=== PATIENT | male | born 1955 | race Caucasian/White ===

== ENCOUNTER 2021-01-15 10:00 | Outpatient (RCR) | payer OTHER, SELFPAY | END 2021-06-17 10:54 | disposition home or self-care (01) | LOC: HO.PTCHIC 10:00 | PROVIDERS: PCP Internal Medicine; Visit Provider Internal Medicine | DX: M54.9 Dorsalgia, unspecified (principal) | CPT/HCPCS: 97110; 97140; 97163 ==

== ENCOUNTER 2021-02-25 13:23 | Outpatient (REF) | payer MEDICARE, SELFPAY ==
--- NOTE | ~2021-02-25 | XR_ITS ---
EXAMINATION: XR FOOT, RIGHT CLINICAL INFORMATION: Right foot pain after trauma. COMPARISON: 12/30/2016 TECHNIQUE: AP, lateral, and oblique views of the right foot. FINDINGS: There is a transverse fracture of the right 5th toe proximal phalangeal shaft with buckling of the dorsal cortex. Bones are osteopenic. No additional fractures are identified. There is mild osteoarthritis in the 1st MTP joint and a few interphalangeal joints. Joints otherwise appear relatively well-preserved. Soft tissues are swollen with subcutaneous edema. Calcific atherosclerosis is noted. Osteoarthritis is evident in the ankle. XR/XR foot RT min 3V IMPRESSION: Non-displaced fracture of the 5th toe proximal phalangeal shaft.
== END 2021-02-25 13:24 | disposition home or self-care (01) ==
LOC: HO.XRAY 13:23
PROVIDERS: PCP Internal Medicine; Visit Provider Internal Medicine
DX: M79.671 Pain in right foot (principal)
CPT/HCPCS: 73630

== ENCOUNTER → 2021-04-21 08:42 | Outpatient (BNVA) | payer MEDICARE, SELFPAY | PROVIDERS: PCP Internal Medicine; Visit Provider Physician Assistant | DX: Z09 Encounter for follow-up examination after completed treatment for conditions other than malignant neoplasm (principal); S92.911D Unspecified fracture of right toe(s), subsequent encounter for fracture with routine healing | CPT/HCPCS: 99202 ==

== ENCOUNTER 2021-07-17 14:00 | Outpatient (RCR) | payer OTHER, SELFPAY | END 2021-07-17 16:54 | disposition home or self-care (01) | LOC: HO.PTCHIC 14:00 | PROVIDERS: Visit Provider Internal Medicine | DX: M51.36 Other intervertebral disc degeneration, lumbar region (principal) | CPT/HCPCS: 97110; 97140; 97162 ==

== ENCOUNTER 2022-10-13 09:32 | Outpatient (REF) | payer OTHER, SELFPAY ==
[2022-10-13 14:22] LABS: Basophils Absolute Auto 0.1 X10*3/uL (0.0-0.2); Basophils Percent Auto 0.6 % (0-2); Eosinophils Absolute Auto 0.2 X10*3/uL (0.0-0.4); Eosinophils Percent Auto 2.3 % (0-4); Hematocrit 42.8 % (42.0-52.0); Hemoglobin 13.9 g/dl (14.0-18.0); Imm Gran Abs Auto 0.08 X10*3/uL (0.00-0.03); Imm Gran Pct Auto 0.8 % (0.0-0.4); Lymphocytes Absolute Auto 1.5 X10*3/uL (1.2-4.9); Lymphocytes Percent Auto 14.3 % (20-40); MANUAL DIFF FLAG NO; Mean Corpuscular HGB Conc 32.5 g/dl (31.0-36.0); Mean Corpuscular Hemoglobin 28.4 pg (27.0-33.0); Mean Corpuscular Volume 87.5 fL (80.0-98.0); Mean Platelet Volume 10.7 fL (9.4-12.4); Monocytes Absolute Auto 0.8 X10*3/uL (0.1-1.2); Monocytes Percent Auto 7.4 % (2-11); Neutrophils Absolute Auto 7.8 x10*3/uL (2.0-8.3); Neutrophils Percent Auto 74.6 % (45-73); Platelet Count 223 X10*3/uL (160-400); Red Blood Count 4.89 X10*6/uL (4.60-5.80); Red Cell Distribution Width 13.4 % (11.0-16.0); White Blood Count 10.4 X10*3/uL (4.8-10.8)
[2022-10-13 15:06] LABS: Alanine Aminotransferase 21 U/L (0-40); Albumin Level 4.3 g/dL (3.5-5.0); Alkaline Phosphatase 83 U/L (39-117); Anion Gap 18 (12-20); Aspartate Amino Transferase 17 U/L (5-37); Bilirubin Total 0.6 mg/dL (0.0-1.0); Blood Urea Nitrogen 21 mg/dL (9-16); Calcium 10.3 mg/dL (8.4-10.2); Carbon Dioxide 26 mmol/L (22-29); Chloride 102 mmol/L (96-108); Estimated Glomerular Filt Rate > 60; Glucose Fasting 101 mg/dL (60-99); Sodium 141 mmol/L (135-145); Total Protein 7.1 g/dL (6.5-8.0)
== END 2022-10-13 09:33 | disposition home or self-care (01) ==
LOC: HO.CHCLDS 09:32
PROVIDERS: Visit Provider Internal Medicine
DX: I10 Essential (primary) hypertension (principal); E78.2 Mixed hyperlipidemia
CPT/HCPCS: 36415; 80053; 85025

== ENCOUNTER 2023-09-17 12:56 | Outpatient (REF) | payer OTHER, SELFPAY ==
[2023-09-17 15:10] LABS: Alanine Aminotransferase 14 U/L (0-40); Albumin Level 4.1 g/dL (3.5-5.0); Alkaline Phosphatase 65 U/L (39-117); Anion Gap 12 (12-20); Aspartate Amino Transferase 13 U/L (5-37); Bilirubin Total 0.5 mg/dL (0.0-1.0); Blood Urea Nitrogen 18 mg/dL (9-16); Calcium 9.4 mg/dL (8.4-10.2); Carbon Dioxide 28 mmol/L (22-29); Chloride 106 mmol/L (96-108); Cholesterol 138 mg/dL (<200); Estimated Glomerular Filt Rate > 60; Glucose Random 93 mg/dL (60-115); HDL Cholesterol 32 mg/dL (>40); LDL Cholesterol Calculated 73 mg/dL (<100); Potassium 4.1 mmol/L (3.3-5.1); Sodium 142 mmol/L (135-145); Total Protein 6.7 g/dL (6.5-8.0); Triglycerides 166 mg/dL (<150)
[2023-09-17 15:23] LABS: PSA,Total (Free>4and<10) 0.42 ng/mL (0.00-4.00)
[2023-09-17 15:31] LABS: TSH reflex Free T4 0.93 uIU/mL (0.32-4.0)
== END 2023-09-17 12:57 | disposition home or self-care (01) ==
LOC: CF 12:56
PROVIDERS: Visit Provider Internal Medicine
DX: Z12.5 Encounter for screening for malignant neoplasm of prostate (principal); M54.9 Dorsalgia, unspecified; E11.9 Type 2 diabetes mellitus without complications; E78.2 Mixed hyperlipidemia
CPT/HCPCS: 36415; 80053; 80061; 84153; 84443

== ENCOUNTER 2025-01-09 08:33 | Outpatient (REF) | payer OTHER, SELFPAY ==
--- OUTSIDE RECORDS SUMMARY | 2025-01-09 09:10 | XMS_ITS | Encounter Summary ---
Author Organization [employer] Address [address] [place] [address] 7 [place] [address] Care Team Providers Care Marble Setter Name Role Phone Heather Garcia MD Primary Care Provider [phone] Encounter Details Date Type Department Care Team ([facility] st Contact Info) Description 07/29/2023 Orders Only [facility] MED & PEDS [address] [place], [place] [phone] Heather Garcia MD [address] [place], [place] [phone] Back pain, unspecified back location, unspecified back pain laterality, unspecified chronicity (Primary Dx) Social History Tobacco Use Types Packs/Day Years Used Date Smoking Tobacco: Former Cigarettes Q uit: 1999 Smokeless Tobacco: Never Alcohol Use Standard Drinks/Week Comments Not Currently 0 (1 standard drink = 0.6 oz pur e alcohol) occasional Alcohol Answer Date Recorded Frequency of Alcohol Consumption Not on file 03/04/2023 Average Number of Drinks Not on file 023 Frequency of Binge Drinking Not on file 02/05 Score 0 03/04/2023 Depression Answer Date Recorded Patient Health Questionnaire-9 Score 0 03/04/2023 Patient Health Questionnaire-9 Score 0 03/04/2023 Last PHQ-9: Questionnaire Data Not on file 1 05/04/2022 Housing Stability Answer Date Recorded What is your housing situation today? I have juanita schafer 03/04/[address] you li ve. Do you have problems with any of the following? None of the above 03/04/2023 Food Insecurity Answer Date Recorded Within the past 12 months, y ou worried that your food would run out before you got money to buy more: Never True 03/04/2023 Within the past 12 months,th e food you bought just didn't last and you didn't have enough money to get more: Never True Transportation Answer Date Recorded In the past 12 months, has l ack of transportation kept you from medical appts, meetings, work or from getting things needed for daily living? No 03/04/2023 Utilities Answer Date Recorded In the past 12 months, has t he [employer], gas, oil or water [employer] threatened to shut off services in your home? No 03/04/2023 Depression Answer Date Recorded Patient Health Questionnaire-2 Score 0 03/04/2023 Sex and Gender Information Value Date Recorded Sex Assigned at Male 02/02/2022 10:20 AM EDT Legal Sex Male 10:20 AM EDT Gender Identity Male 02/02/2022 10:20 AM EDT Sexual Orientation Straight 02/02/2022 10 :20 AM EDT documented as of this encounter Plan of Treatment Upcoming Encounters Date Type Department Care Team (Late st Contact Info) Description 01/15/2025 1:00 PM EDT Office Visit [facility] MED & PEDS [address] [place] [address] Heather Garcia MD [address] [place] [address] 03/22/2025 1:30 PM EST Clinical Support [facility] [address] [place] [address] Love Alexandra RN [address] [place] [address] documented as of this encounter Procedures Procedure Name Priority Date/Time Associated Diagnosis Comments PSA, TOTAL WITH REFLEX TO PSA, FREE Routine 09/17/2023 12:57 PM EDT Back pain, unspecified back location, unspecified back pain laterality, unspecified chronicity documented in this encounter Results * PSA, Total With Reflex to PSA, Free (09/17/2023 12:57 PM EDT) PSA,Total (Free>4and<10) 0.42 0.00 - 4.00 ng/mL [facility] Comment:A Free PSA was not p erformed: The percentage of Free PSA can be used to enhance the differentiation of prostate cancer from benign prostatic disease in subjects whose PSA levels are between 4.0 and 10.0 ng/mL. For subjects whose PSA levels are below 4.0 or above 10.0 ng/mL, the risk of prostate cancer is determined on the basis of the PSA alone. Therefore the % Free PSA is recommended only for those subjects whose PSA levels are between 4.0 and 10.0 ng/mL.PSA methodology: Sexton Alinity i ChemiluminescentMicroparticle Immunoassay (CMIA) 09/17/2023 12:5 7 PM EDT 09/17/2023 2:39 PM EDT us Heather Garcia MD LAB BLOOD ORDERABLES Final Result [facility] [address] [place] [address] [phone] documented in this encounter Visit Diagnoses Diagnosis Back pain, unspecified back location, unspecified back pain laterality, unspecified chronicity- Primary documented in this encounter Additional Health Concerns Assessment Noted Time PHQ-9 Depression Total Score: 0 03/04/20 23 9:59 AM EST documented as of this encounter Care Teams Marble Setter Relationship Specialty Start Date End Date Heather Garcia MD [address] [place] [address] PCP - General Internal Medicine 03/23/13 documented as of this encounter
--- OUTSIDE RECORDS SUMMARY | 2025-01-09 09:10 | XMS_ITS | Encounter Summary ---
Author Organization [employer] Address [address] [place] [address] 7 [place] [address] Care Team Providers Care Dimensional Engineer Name Role Phone Heather Garcia MD Primary Care Provider [phone] Encounter Details Date Type Department Care Team ([facility] st Contact Info) Description 08/13/2023 Orders Only [facility] CHC MED & PEDS [address] [place], [place] [phone] Heather Garcia MD [address] [place], [place] [phone] Class 2 obesity (Primary Dx); Type 2 diabetes, diet controlled (CMS/HCC) Social History Tobacco Use Types Packs/Day Years [...] your housing situation today? I have juanita shcafer 03/04/[address] you li [...] the past 12 months, has t he electric, gas, oil or water company threatened to shut off services in your [...] Description 01/15/2025 1:00 PM EDT Office Visit [facility] MED & PEDS [address] [place] [address] Heather Garcia MD [address] [place] [address] 03/22/2025 1:30 PM EST Clinical Support [facility] P[facility] [address] [place] [address] Love Alexandra, PALAK [address] [place] [address] documented as of this encounter Visit Diagnoses Diagnosis Class 2 obesity- Primary Type 2 diabetes, diet controlled (HCC) documented in this encounter Additional Health Concerns Assessment Noted Time PHQ-9 Depression Total Score: 0 03/04/20 9:59 AM EST documented as of this encounter Care Teams Dimensional Engineer Relationship Specialty Start Date End Date Heather Garcia MD [address] [place] [address] PCP - General Internal Medicine 03/23/13 documented as of this encounter
--- OUTSIDE RECORDS SUMMARY | 2025-01-09 09:10 | XMS_ITS | Encounter Summary ---
Author Organization [employer] Address [address] [facility] 7 [place] [address] Care Team Providers Care Package Drier Name Role Phone Heather Garcia MD Primary Care Provider [phone] Reason for Visit * Reason Onset Date Comments Medication Question 08/31/2024 Encounter Details Date Type Department Care Team ([facility] st Contact Info) Description 08/31/2024 Telephone [facility] MEDICINE [address] [place], [place] [phone] Heather Garcia MD [address] [place] [address] Medication Question Social History Tobacco Use Types Packs/Day Years Used Date Smoking Tobacco: Former Cigarettes Q uit: 1999 Passive Smoke Exposure: Past Smokeless Tobacco: Never Alcohol Use Standard Drinks/Week [...] housing situation today? I have juanita schafer 08/03/[address] you li ve. Do you have problems with any of the following? Pests such as bugs, ants, or mice 08/03/2024 Food Insecurity Answer Date Recorded Within the past 12 months, y ou worried that your food would run out before you got money to buy more: Sometimes True 2024 Within the past 12 months,th e food you bought just didn't last and you didn't have enough money to get more: Sometimes True 08/03/2024 Transportation Answer Date Recorded In the past 12 months, has l ack of transportation kept you from medical appts, meetings, work or from getting things needed for daily living? No 03/04/2023 Utilities Answer Date Recorded In the past 12 months, has t he [employer], [employer], oil or water [employer] threatened to shut off services in your home? No 03/04/2023 Depression Answer Date Recorded Patient Health Questionnaire-2 Score 0 03/04/2023 Internet Access Answer Date Recorded Internet Access Q1 Yes 08/03/2024 Internet Access Q2 Not on file 08/03/2024 Sex and Gender Information Value Date Recorded Sex Assigned at Male 02/02/2022 10:20 AM EDT Legal Sex Male 10:20 AM EDT Gender Identity Male 02/02/2022 10:20 AM EDT Sexual Orientation Straight 02/02/2022 10 :20 AM EDT documented as of this encounter Miscellaneous Notes * Telephone Encounter - Micki Hidalgo RN - 08/31/2024 12:51 PM EDT Prescription resent to pharmacy allowing patient to berry picker machine operator Oxy 5 mg 08/31/24. Attempted to contactpatient via TC, no answer and no message left. * Telephone Encounter - Boubacar Hansen - 08/31/2024 12:32 PM EDT Tc from pt was informed pharmacy is unable to fill oxyCODONE (Roxicodone) 5 MG immediate release tablet because medication is due for tomorrow and they advised opt to call pcp. Pt has an appt today at 1:00 with dentist and states will not have transportation for tomorrow and is hoping pcp can override due date for pt to berry picker machine operator medication today. If any questions please contact pt at [phone]. documented in this encounter Plan of Treatment Upcoming Encounters Date Type Department Care Team (Late st Contact Info) Description 01/15/2025 1:00 PM EDT Office Visit [facility] MED & PEDS [address] [place] [address] Heather Garcia MD [address] [place] [address] 03/22/2025 1:30 PM EST Clinical Support [facility] MED & PEDS [address] [place] [address] Love Alexandra RN [address] [place] [address] documented as of this encounter Visit Diagnoses Diagnosis Back pain, unspecified back location, unspecified back pain laterality, unspecified chronicity documented in this encounter Additional Health Concerns Assessment Noted Time PHQ-9 Depression Total Score: 0 03/04/20 23 9:59 AM EST documented as of this encounter Care Teams Package Drier Relationship Specialty Start Date End Date Heather Garcia MD [address] [place] [address] PCP - General Internal Medicine 03/23/13 documented as of this encounter
--- OUTSIDE RECORDS SUMMARY | 2025-01-09 09:10 | XMS_ITS | Encounter Summary ---
Author Organization [employer] Address [address] [place] [address] 7 [place] [address] Care Team Providers Care Telephone Coin Box Collector Name Role Phone Heather Garcia MD Primary Care Provider [phone] Encounter Details Date Type Department Care Team ([facility] st Contact Info) Description 08/31/2024 Orders Only [facility] CHC MED & PEDS [address] [place], [place] [phone] Heather Garcia MD [address] [place], [place] [phone] Back pain, unspecified back location, unspecified back pain laterality, unspecified chronicity Social History Tobacco Use Types Packs/Day Years [...] Description 01/15/2025 1:00 PM EDT Office Visit [facility] MED & PEDS [address] [place] [address] Heather Garcia MD [address] [place] [address] 03/22/2025 1:30 PM EST Clinical Support [facility] MED & PEDS [address] [place] [address] Love Alexandra, RN [address] [place] [address] documented as of this encounter Visit Diagnoses Diagnosis Back pain, unspecified back location, unspecified back pain laterality, unspecified chronicity documented in this encounter Additional Health Concerns Assessment Noted Time PHQ-9 Depression Total Score: 0 03/04/20 9:59 AM EST documented as of this encounter Care Teams Telephone Coin Box Collector Relationship Specialty Start Date End Date Heather Garcia MD [address] [place] [address] [address] PCP - General Internal Medicine 03/23/13 documented as of this encounter
--- OUTSIDE RECORDS SUMMARY | 2025-01-09 09:10 | XMS_ITS | Encounter Summary ---
Author Organization [employer] Address [address] [place] [address] Care Team Providers Care Boom Operator Name Role Phone Heather Garcia MD Primary Care Provider [phone] Encounter Details Date Type Department Care Team (Late st Contact Info) Description 04/23/2022 Orders Only [facility] MED & PEDS [address] [place] [address] Manisha Lopez LPN Social History Tobacco Use Types Packs/Day Years Used Date Smoking Tobacco: Never Assessed Sex and Gender Information Value Date Recorded Sex Assigned at Male 02/02/2022 10:20 AM EDT Legal Sex Male 10:20 AM EDT Gender Identity Male 02/02/2022 10:20 AM EDT Sexual Orientation Straight 02/02/2022 10 :20 AM EDT documented as of this encounter Plan of Treatment Upcoming Encounters Date Type Department Care Team (Late st Contact Info) Description 01/15/2025 1:00 PM EDT Office Visit [facility] MED & PEDS [address] [place] [address] Heather Garcia MD [address] [place] [address] 03/22/2025 1:30 PM EST Clinical Support [facility] P[facility] [address] [place] [address] Love Alexandra, PALAK [address] [place] [address] documented as of this encounter Visit Diagnoses Not on filedocumented in this encounter Care Teams Boom Operator Relationship Specialty Start Date End Date Heather Garcia MD [address] [place] [address] PCP - General Internal Medicine 03/23/13 documented as of this encounter
--- OUTSIDE RECORDS SUMMARY | 2025-01-09 09:10 | XMS_ITS | Encounter Summary ---
Author Organization [employer] Address [address] [place] [address] 7 [place] [address] Care Team Providers Care High School Director Name Role Phone Heather Garcia MD Primary Care Provider [phone] Encounter Details Date Type Department Care Team ([facility] Contact Info) Description 11/13/2022 Orders Only [facility] MED & PEDS [address] [place] [address] Manisha Lopez LPN Social History Tobacco Use Types Packs/Day Years Used Date Smoking Tobacco: Former Cigarettes Q uit: 2020 Smokeless Tobacco: Never Alcohol Use Standard Drinks/Week Comments Not Currently 0 (1 standard drink = 0.6 oz pur e alcohol) occasional Sex and Gender Information Value Date Recorded Sex Assigned at Male 02/02/2022 10:20 AM EDT Legal Sex Male 10:20 AM EDT Gender Identity Male 02/02/2022 10:20 AM EDT Sexual Orientation Straight 02/02/2022 10 :20 AM EDT documented as of this encounter Plan of Treatment Upcoming Encounters Date Type Department Care Team (Late Contact Info) Description 01/15/2025 1:00 PM EDT Office Visit [facility] CHC MED & PEDS [address] [place] [address] Heather Garcia MD [address] [place] [address] 03/22/2025 1:30 PM EST Clinical Support [facility] MED [facility] PED[facility] [address] [place] [address] Love Alexandra, RN [address] [place] [address] documented as of this encounter Visit Diagnoses Not on filedocumented in this encounter Care Teams High School Director Relationship Specialty Start Date End Date Heather Garcia MD [address] [place] [address] [place] Stout [address] PCP - General Internal Medicine 03/23/13 documented as of this encounter
--- OUTSIDE RECORDS SUMMARY | 2025-01-09 09:10 | XMS_ITS | Patient Health Record ---
Author Organization [facility] Address [address] [place] [address] Care Team Providers Care Toll Patrolman Name Role Phone Heather Garcia Primary Care Provider Unavail able Sravan Dow Unavailable [phone] Allergies Allergen (clinical drug ingredient) Drug/Non Drug Allergy documented on EMR Reaction Allergy Type Onset Date Status ibuprofen Advil anemic Drug Allergy Active Aleve anemic Drug Allergy Active duloxetine Cymbalta Unknown Drug Allergy Active pregabalin Lyrica Unknown Drug Allergy Active Motrin anemic Drug Allergy Active Wellbutrin Unknown Drug Allergy Active Results Component Value Reference Range Notes HEMOGLOBIN A1C (GLYCOHEMOGLO BIN) Reviewed date:04/20/2024 01:07:57 PM Interpretation: Performing Lab: Notes/Report: HEMOGLOBIN A1C % (HH) 5.4 HEMOGLOBIN A1C (GLYCOHEMOGLO BIN) Reviewed date:07/20/2024 01:45:50 PM Interpretation: Performing Lab: Notes/Report: HEMOGLOBIN A1C % (HH) 5.4 HEMOGLOBIN A1C (GLYCOHEMOGLO BIN) Reviewed date:11/01/2024 01:14:07 PM Interpretation: Performing Lab: Notes/Report: HEMOGLOBIN A1C % (HH) 5.4 Reason For Referral No Information Medications Medication SIG (Take, Route, Frequency, Duration) Notes Start Date End Date Status NIFEdipine ER 30 MG 1 tablet on an empty stomach Orally Once a day; Duration: 30 day(s) Active Mupirocin Active Pantoprazole Sodium 40 MG 1 tablet Orall y Once a day Active Ozempic (0.25 or 0.5 MG/DOSE) once a week Active oxyCODONE HCl 5 MG 1 tablet Orally three times daily Active Multivitamin Active Extra Depth Orthopedic Shoes (1 Pair) with Customized Heat Molded Multidensity Innersoles (3 Pair) as directed Dx: NIDDM/Polyneuropath y (E11.42), Hammertoe Foot Deformity (M20.41,M20.42), Preulcerative Skin Lesion(s) (L85.1 Active Flonase Active Valsartan 160 MG 1 tablet Orally Once a day Active Docusate Sodium 100 MG 1 capsule as need ed Orally Once a day; Duration: 30 day(s) Active Ferrous Sulfate 325 (65 Fe) MG 1 tablet Orally Three times a Week; Duration: 30 day(s) Active Tylenol prn Active Aspirin 81 Active Carvedilol 12.5 MG 1 tablet with food Orally Twice a day; Duration: 30 day(s) Active Ozempic Not-Taking hydroCHLOROthiazide 25 MG 1 tablet in th e morning Orally Once a day; Duration: 30 day(s) Active Loratadine 10 MG 1 tablet Orally Once a day; Duration: 30 day(s) Active Immunizations Vaccine Route Administration Date Status Comme nts Influenza Unknown 12/04/2022 Administered Influenza Unknown 12/06/2023 Administered Social History Tobacco Use: Social History Observation Description Date Details (start date - stop date) Never Smoker NA - NA Tobacco use other than smoking: Question Answer Notes Are you an other tobacco user? No Tobacco Control (Standard) Question Answer Notes Tobacco use: Nonsmoker Additional Findings: Tobacco non-user Current no nsmoker AUDIT-C (Standard) Question Answer Notes Did you have a drink contain ing alcohol in the past year? Yes How often did you have a dri nk containing alcohol in the past year? Monthly or less (1 point) How many drinks did you have on a typical day when you were drinking in the past year? 1 or 2 drinks (0 point) How often did you have six o r more drinks on one occasion in the past year? Never (0 point) Points 1 Interpretation Negative Problems Problem Type SNOMED Code ICD Code Onset Dates Problem Status W/U Status Risk Notes Problem Acquired hammer toe of right foot (9080723817288711 ) Other hammer toe(s) (acquired), right foot (M20.41) Active confirmed Problem Acquired hammer toe of left foot (3139617645164152 ) Other hammer toe(s) (acquired), left foot (M20.42) Active confirmed Problem Polyneuropathy due to type 2 diabetes mellitus (107382658) Type 2 diabetes mellitus with diabetic polyneuropathy (E11.42) Active confirmed Problem Type 2 diabetes mellitus with peripheral angiopathy (540303816) Type 2 diabetes mellitus with diabetic peripheral angiopathy without gangrene (E11.51) Active confirmed Vital Signs Blood pressure diastolic 67 mm Hg 07/20/2024 Height 5ft 9in in 11/01/2024 Blood pressure systolic 131 mm Hg 07/20/2024 Weight 190 lbs 11/01/2024 BMI 28.06 kg/m2 11/01/2024 Procedures Procedure Date Ordered Date Performed Result Body Sit e 81205-FSOLIYT NAIL, 1-5 04/20/2024 N/A 07544-ZBJK SKIN LESIONS, 2 TO 4 04/20/2024 N/A P4891-EUWTSSRJ DYSTROPHIC NAILS ANY # 04/20/2024 N/A 87546-OEPLZKO NAIL, 1-5 07/20/2024 N/A 65790-ZGOU SKIN LESIONS, 2 TO 4 07/20/2024 N/A O3173-UVPUHBVO DYSTROPHIC NAILS ANY # 07/20/2024 N/A 77287-UPXFVTO NAIL, 1-5 11/01/2024 N/A 14701-GIBW SKIN LESIONS, 2 TO 4 11/01/2024 N/A A3274-GOPQKMPA DYSTROPHIC NAILS ANY # 11/01/2024 N/A Encounters Encounter Location Date Provider Diagnosis [address] [address] 04/20/2024 Sravan Dow Type 2 diabetes mellitus with diabetic polyneuropathy E11.42 ; Tinea unguium B35.1 ; Other hammer toe(s) (acquired), right foot M20.41 and Other hammer toe(s) (acquired), left foot M20.[address] [address] 07/20/2024 Sravanmichelle WilcoxPaloma Type 2 diabetes mellitus with diabetic polyneuropathy E11.42 ; Tinea unguium B35.1 ; Other hammer toe(s) (acquired), right foot M20.41 and Other hammer toe(s) (acquired), left foot M20.42 [facility] [place] [address] [address] 11/01/2024 Sravan Dow Type 2 diabetes mellitus with diabetic polyneuropathy E11.42 and Tinea unguium B35.1 Assessments Encounter Date Diagnosis (ICD Code) Assessment Notes Treatment Notes Treatment Clinical Notes Section Notes 04/20/2024 Tinea unguium (ICD-10 - B35.1) 04/20/2024 Type 2 diabetes mellitus with diabetic polyneuropathy (ICD-10 - E11.42) 07/20/2024 Tinea unguium (ICD-10 - B35.1) 07/20/2024 Type 2 diabetes mellitus with diabetic polyneuropathy (ICD-10 - E11.42) 11/01/2024 Tinea unguium (ICD-10 - B35.1) 11/01/2024 Type 2 diabetes mellitus with diabetic polyneuropathy (ICD-10 - E11.42) 07/20/2024 Other hammer toe(s) (acquired), right foot (ICD-10 - M20.41) Patient Educated with: DIABETIC FOOT CARE INSTRUCTIONS. pdf (DIABETIC FOOT CARE INSTRUCTIONS. pdf) 04/20/2024 Other hammer toe(s) (acquired), right foot (ICD-10 - M20.41) Patient Educated with: DIABETIC FOOT CARE INSTRUCTIONS. pdf (DIABETIC FOOT CARE INSTRUCTIONS. pdf) 04/20/2024 Other hammer toe(s) (acquired), left foot (ICD-10 - M20.42) 07/20/2024 Other hammer toe(s) (acquired), left foot (ICD-10 - M20.42) Plan Of Treatment Pending Test Test Name Order Date 66649-OGIWRVQ NAIL, -11/19/2022 04772-NXRSRKE NAIL, -02/18/2023 43649-CLICAAH NAIL, -05/20/2023 96628-FXHYHDL NAIL, -10/21/2023 53217-IPNDRDR NAIL, -01/06/2024 05249-ZEROWOA NAIL, -04/20/2024 75116-SNRHEYJ NAIL, -07/20/2024 84223-AGSHJFZ NAIL, 1-5 11/01/2024 66627-Jwgwchbl Plate 11/19/2022 79689-Zoypttrs Plate Each Additional 30376-WHAT SKIN LESIONS, 2 TO 4 11/20/19 23 28962-XIVI SKIN LESIONS, 2 TO 4 05/20/19 24 68120-OTZU SKIN LESIONS, 2 TO 4 04/20/19 25 12096-YXCI SKIN LESIONS, 2 TO 4 02/19/20 23 04412-NVVH SKIN LESIONS, 2 TO 4 01/06/20 24 48531-URZD SKIN LESIONS, 2 TO 4 10/21/19 24 74406-ZTBK SKIN LESIONS, 2 TO 4 11/02/19 25 96514-MYWC SKIN LESIONS, 2 TO 4 07/21/19 25 G6832-FYETZZNV DYSTROPHIC NAILS ANY # P3323-RSJODMJB DYSTROPHIC NAILS ANY # L8725-VIHKQOKT DYSTROPHIC NAILS ANY # Q6411-JXRXJNWH DYSTROPHIC NAILS ANY # A0922-LOFWWRXT DYSTROPHIC NAILS ANY # T3862-NAGMIHGQ DYSTROPHIC NAILS ANY # J5412-GZQAQNTC DYSTROPHIC NAILS ANY # X4183-MRQVBRFE DYSTROPHIC NAILS ANY # Next Appt Details Provider Name:Sravan Silva Paloma , 02/15/2025 01:30:00 PM, [address] [address], [place], [address], Insurance Providers Payer Name Payer Address Payer Phone Subscriber Number Group Number Insured Name Patient Relationship to Insured Coverage Start Date Coverage End Date [facility] [employer] Claims [address] [place] [address] [id number] Mj Sawant Self - patient is the insured Medical (General) History Medical History History ICD Code Anemia Anxiety Arthritis Back,Hip,and Knee pain Depression Diabetic High blood pressure Kidney disease Numbness Poor circulation Psoriasis/eczema Reflux ( GERD) Stroke Measles Chicken pox Vascular grafts Transfusions Surgical History Surgery Date(Month/Year) carotid artery, left 03/04/21 femoral artery bypass 08/27/17 rotator cuff tear repair 2014 spinal fusion, C5 C6 11/2007 shoulder surgery, right 2004 knee surgery, left 1974, 1980, 1986 appendix 2001 carotid artery, right 06/27/17 artery bypass, left leg 07/11/09 endoscopy artery procedure, leg 04/27/24
--- OUTSIDE RECORDS SUMMARY | 2025-01-09 09:10 | XMS_ITS | Encounter Summary ---
Author Organization [employer] Address [address] [place] [address] [place] [address] Care Team Providers Care Machine Brush Maker Name Role Phone Heather Garcia MD Primary Care Provider [phone] Reason for Visit * Reason Onset Date Comments Med Refill 11/21/2024 Encounter Details Date Type Department Care Team ([facility] st Contact Info) Description 11/21/2024 Telephone [facility] [address] [place] [address] Heather Garcia MD [address] [place] [address] Med Refill Social History Tobacco Use Types Packs/Day Years [...] the past 12 months, has t he [employer], gas, oil or water company threatened to [...] encounter Miscellaneous Notes * Telephone Encounter - Fausto Maria - 11/21/2024 10:38 AM EDT TC from pt requesting medication refill. Medications needing refill : oxyCODONE (Roxicodone) 5 MG immediate release tablet To be sent to: [facility] - [address] documented in this encounter Plan of Treatment Upcoming Encounters Date Type Department Care Team ([facility] st Contact Info) Description 01/15/2025 1:00 PM EDT Office Visit [facility] MED & PEDS 505 [place] [address] Heather Garcia MD [address] [place] [address] 03/22/2025 1:30 PM EST Clinical Support [facility] MED [facility] PEDS [address] [place] [address] Love Alexandra, PALAK 505 [place] [address] documented as of this encounter Visit Diagnoses Not on filedocumented in this encounter Additional Health Concerns Assessment Noted Time PHQ-9 Depression Total Score: 0 03/04/20 23 9:59 AM EST documented as of this encounter Care Teams Machine Brush Maker Relationship Specialty Start Date End Date Heather Garcia MD [address] [place] [address] PCP - General Internal Medicine 03/23/13 documented as of this encounter
--- OUTSIDE RECORDS SUMMARY | 2025-01-09 09:10 | XMS_ITS | Encounter Summary ---
Author Organization [email or web address] Address [address] [place] [address] Care Team Providers Care Outreach Representative Name Role Phone Heather Garcia MD Primary Care Provider Reason for Visit * Reason Comments Med Refill Encounter Details Date Type Department Care Team ([facility] Contact Info) Description 04/20/2022 Refill [facility] MED & PEDS [address] [place] [address] Heather Garcia MD [address] [place] [address] Primary hypertension (Primary Dx); Nasal congestion Social History Tobacco Use Types Packs/Day Years [...] Upcoming Encounters Date Type Department Care Team ([facility] Contact Info) Description 01/15/2025 1:00 PM EDT Office Visit [facility] MED [facility]EDS [address] [place] [address] Heather Garcia MD [address] [place] [address] 03/22/2025 1:30 PM EST Clinical Support [facility] MED & PEDS [address] [place] [address] McMLove ornelas RN 505 [place] [address] documented as of this encounter Visit Diagnoses Diagnosis Primary hypertension- Primary Unspecified essential hypertension Nasal congestion Other diseases of nasal cavity and sinuses documented in this encounter Care Teams Outreach Representative Relationship Specialty Start Date End Date Heather Garcia MD [address] [place] [address] PCP - General Internal Medicine 03/23/13 documented as of this encounter
--- OUTSIDE RECORDS SUMMARY | 2025-01-09 09:10 | XMS_ITS | Clinical Summary ---
Author Organization [facility] Address [address] [facility] [address] [place] [address] Phone Care Team Providers Care Pigeon Fancier Name Role Phone Heather Garcia MD Primary Care Provider Unav ailable Allergies Active Allergy Reactions Criticality Noted Date Comments Bupropion 08/25/2021 Other reaction(s): made me goofy anxious, agitated, depressed Duloxetine Other (see comments) 08/25/2021 Duloxetine Hcl 04/30/2022 Nabumetone 04/30/2022 Pregabalin 08/25/2021 Other reaction(s): made me goofy Medications Acetaminophen Extra Strength 500 MG tablet TAKE ONE TABLET BY MOUTH EVERY 4 TO 6 HOURS NEEDED. DO NOT EXCEED EIGHT TABLETS PER DAY. 12/18/2020 Active Aspirin Low Dose 81 MG EC tablet Take 81 mg by mouth every morning 02/05/2021 Active atorvastatin (LIPITOR) 40 MG tablet 40 mg every night 01/06/2021 Active carvedilol (COREG) 12.5 MG tablet TAKE 1 TABLET BY MOUTH TWO TIMES A DAY 03/09/2021 Active glucose 4 g chewable tablet TAKE ONE TABLET BY MOUTH if fasting blood sugar is less than 70. 12/18/2020 Active docusate sodium (COLACE) 100 MG capsule TAKE ONE CAPSULE IN THE MORNING AND EVENING 03/10/2021 Active FeroSul 325 (65 Fe) MG tablet Take 1 tablet by mouth every morning 03/10/2021 Active fluticasone (FLONASE) 50 MCG/ACT nasal spray PLACE ONE SPRAY IN EACH NOSTRIL TWICE DAILY NEEDED 01/21/2021 Active hydrALAZINE 25 MG tablet TAKE ONE TABLET THREE TIMES DAILY IN THE MORNING, EVENING AND BEDTIME WITH FOOD 02/06/2021 Active hydroCHLOROthia zide 25 MG tablet Take 25 mg by mouth 1 (one) time each day 03/09/2021 Active loratadine (CLARITIN) 10 MG tablet 10 mg every night 03/10/2021 Active Multiple Vitamin (Daily-Nancy) tablet Take 1 tablet by mouth every morning 03/10/2021 Active NIFEdipine XL (PROCARDIA XL) 30 MG 24 hr tablet Take 30 mg by mouth 1 (one) time each day 03/09/2021 Active oxyCODONE (ROXICODONE) 5 MG immediate release tablet TAKE ONE TABLET BY MOUTH EVERY 8 HOURS NEEDED FOR PAIN 02/19/2021 Active pantoprazole (PROTONIX) 40 MG EC tablet TAKE ONE TABLET BY MOUTH IN THE MORNING AND EVENING 03/11/2021 Active valsartan (DIOVAN) 160 MG tablet Take 160 mg by mouth 1 (one) time each day 03/09/2021 Active lidocaine (LIDODERM) 5 % patch APPLY 1 PATCH TO SKIN. LEAVE ON FOR 12 HOURS, THEN OFF FOR 12 HOURS DIRECTED. 06/18/2021 Active Artificial Tears 0.2-0.2-1 % solution PLACE ONE DROP THREE TIMES DAILY IN THE MORNING, AT NOON, AND AT BEDTIME NEEDED IN THE AFFECTED EYE(S) 12/21/2022 Active Ozempic, 0.25 or 0.5 MG/DOSE, 2 MG/3ML solution pen-injector 02/12/2023 Active Active Problems Problem Noted Date Diagnosed Date Acquired hammer toe of right foot 02/17/2023 02/17/2023 Polyneuropathy due to type 2 diabetes mellitus 1 04/19/2022 02/17/2023 Type 2 diabetes mellitus with peripheral angiopa thy 02/17/2023 02/17/2023 Paronychia of toe 08/24/2022 02/17/2023 Overview (02/17/2023): Last Assessment & Plan: Patient with paronychia on lateral side of both big toes. Will start on keflex 500 mg and Bactroban 2% ointment. Encouraged to soak in epsom salt and massage. Will refer to podiatry. Severe obesity 08/19/2022 Anxiety 08/25/2021 Carotid artery stenosis 08/25/2021 Depressive disorder 08/25/2021 Ex-smoker 08/25/2021 Finding related to substance use 08/25/2021 Hypertensive disorder 08/25/2021 Hypertensive emergency 08/25/2021 Low back pain 08/25/2021 Neck pain 08/25/2021 Obese class II 08/25/2021 Shoulder pain 08/25/2021 Peripheral arterial occlusive disease 08/25/2021 Postoperative nausea and vomiting 08/25/2021 Osteoarthritis of multiple joints 11/10/2019 Chronic pain syndrome 11/29/2012 Vitamin D deficiency 11/29/2012 Eczema 12/04/2011 Gastroesophageal reflux disease 12/04/2011 Insomnia 12/04/2011 Mixed hyperlipidemia 12/04/2011 Pain of knee region 12/04/2011 Testosterone level below reference range 012 Immunizations Immunization Administration Dates Next Due Influenza Split 12/28/2012,12/31/2011 Influenza Split High Dose Pr eservative Free IM 12/27/2018 Influenza, Quadrivalent, Wit h Preservative 12/31/2017,12/30/2016,12/24/2015,01/07 Influenza, Unspecified 01/08/2023,2021,12/24/2020,12/19,01/02/2014,01/01/2011 Pfizer SARS-COV-2 01/08/2023 Pneumococcal Polysaccharide 08/04/2018, 0 Shingrix 02/22/2019,12/23/2018 Td 01/23/2008 Tdap 01/07/2015,10/25/2014 Zoster 08/04/2018 Family History Medical History Relation Comments Kidney disease Mother Relation Status Comments Mother Social History Tobacco Use Types Packs/Day Years Used Date Smoking Tobacco: Never Smokeless Tobacco: Never Tobacco Cessation:Counseling Given: No Alcohol Use Standard Drinks/Week Comments Never 0 (1 standard drink = 0.6 oz pur e alcohol) Sex and Gender Information Value Date Recorded Sex Assigned at Not on file Legal Sex Male 3:14 PM EST Gender Identity Not on file Sexual Orientation Not on file Last Filed Vital Signs Vital Sign Reading Time Taken Comments Blood Pressure 122/60 02/21/2024 1:49 PM EST Pulse 64 02/21/2024 1:49 PM EST Temperature - - Respiratory Rate - - Oxygen Saturation 97% 02/17/2023 2:36 PM EST Inhaled Oxygen Concentration - - Weight 93 kg (205 lb) 02/21/2024 1:49 PM EST Height - - Body Mass Index - - Plan of Treatment Upcoming Encounters Date Type Department Care Team (Late st Contact Info) Description 02/19/2025 1:15 PM EST Office Visit [facility] [address] [address] Alejandro Pizano MD [address] [address] Health Maintenance Due Date Last Done Comments Colorectal Cancer Screening: Annual FOBT 2002 Colorectal Cancer Screening: Colonoscopy 2002 Colorectal Cancer Screening: Sigmoidoscopy 2002 Diabetes: Ophthalmology Exam 08/19/2022 Diabetes: Pedal Pulse Checked 08/19/2022 Diabetes: Sensory Foot Exam 08/19/2022 Diabetes: Visual Foot Exam 08/19/2022 Diabetes: Hemoglobin A1C 05/09/2024 02/07/2024, 07/05 Influenza Vaccine (#1) 2024 , 12/06/2023, 01/08/2023, Additional history exists Pneumococcal Vaccine: 50+ Years Completed 03/04/2023, 08/04/2018, 07/11/2009 Hepatitis B Vaccine Aged Out No longe r eligible based on patient's age to complete this topic Insurance [facility] ([id number]) [facility] ([id number]) Care Teams Pigeon Fancier Relationship Specialty Start Date End Date Heather Garcia MD [address] [place] [address] JARED Allan [address] PCP - General Internal Medicine 08/25/21
--- OUTSIDE RECORDS SUMMARY | 2025-01-09 09:10 | XMS_ITS | Encounter Summary ---
Author Organization [employer] Address [address] [place] [address] Care Team Providers Care Dining Room Server Name Role Phone Heather Garcia MD Primary Care Provider [phone] Reason for Visit * Reason Comments Med Refill Encounter Details Date Type Department Care Team ([facility] Contact Info) Description 12/21/2022 Refill [facility] MED [facility] PEDS [address] [place] [address] Heather Garcia MD [address] [place] [address] Social History Tobacco Use Types Packs/Day Years [...] Upcoming Encounters Date Type Department Care Team ([facility] Contact Info) Description 01/15/2025 1:00 PM EDT Office Visit [facility] MED [facility] PEDS [address] [place] [address] Heather Garcia MD [address] [place] [address] 03/22/2025 1:30 PM EST Clinical Support [facility] PED[facility] [address] [place] [address] Love Alexandra, RN [address] [place], [place] [phone] documented as of this encounter Visit Diagnoses Not on filedocumented in this encounter Care Teams Dining Room Server Relationship Specialty Start Date End Date Heather Garcia MD [address] [place] [address] PCP - General Internal Medicine 03/23/13 documented as of this encounter
--- OUTSIDE RECORDS SUMMARY | 2025-01-09 09:10 | XMS_ITS | Encounter Summary ---
Author Organization [employer] Address [address] [place] [address] 7 [place] [address] Care Team Providers Care Keg Varnisher Name Role Phone Heather Garcia MD Primary Care Provider [phone] Encounter Details Date Type Department Care Team ([facility] Contact Info) Description 06/09/[address] [facility] MEDICINE [address] [place] [address] Heather Garcia MD [address] [place], [place] [phone] Social History Tobacco Use Types Packs/Day Years Used Date Smoking Tobacco: Never Assessed Alcohol Use Standard Drinks/Week Comments Yes 0 (1 standard drink = 0.6 oz pur e alcohol) occasional Sex and Gender Information Value Date Recorded Sex Assigned at Male 02/02/2022 10:20 AM EDT Legal Sex Male 10:20 AM EDT Gender Identity Male 02/02/2022 10:20 AM EDT Sexual Orientation Straight 02/02/2022 10 :20 AM EDT COVID-19 Exposure Response Date Recorded In the last 10 days, have yo u been in contact with someone who was confirmed or suspected to have Coronavirus/COVID-19? No / Unsure 06/01/2022 3:42 PM EST documented as of this encounter Plan of Treatment Upcoming Encounters Date Type Department Care Team ([facility] Contact Info) Description 01/15/2025 1:00 PM EDT Office Visit [facility] MED [facility] PEDS [address] [place], [place] [phone] Heather Garcia MD [address] [place], [place] [phone] 03/22/2025 1:30 PM EST Clinical Support [facility] PEDS [address] [place] [address] Love Alexandra, PALAK [address] [place], [place] [phone] documented as of this encounter Visit Diagnoses Not on filedocumented in this encounter Care Teams Keg Varnisher Relationship Specialty Start Date End Date Heather Garcia MD [address] [place] [address] PCP - General Internal Medicine 03/23/13 documented as of this encounter
--- OUTSIDE RECORDS SUMMARY | 2025-01-09 09:10 | XMS_ITS | Encounter Summary ---
Author Organization [employer] Address [address] [place] [address] 7 [place] [address] Care Team Providers Care Gluer And Slicer Hand Name Role Phone Heather Garcia MD Primary Care Provider Encounter Details Date Type Department Care Team (Late Contact Info) Description 12/21/[address] [facility] MED & PEDS [address] [place] [address] Heather Garcia MD [address] [place] [address] Social History Tobacco Use Types Packs/Day Years [...] Description 01/15/2025 1:00 PM EDT Office Visit [facility] MED & PEDS [address] [place] [address] Heather Garcia MD [address] [place] [address] 03/22/2025 1:30 PM EST Clinical Support [facility] MED & PEDS [address] [place] [address] Love Alexandra RN [address] [place] [address] documented as of this encounter Visit Diagnoses Not on filedocumented in this encounter Care Teams Gluer And Slicer Hand Relationship Specialty Start Date End Date Heather Garcia MD [address] [place] [address] PCP - General Internal Medicine 03/23/13 documented as of this encounter
--- OUTSIDE RECORDS SUMMARY | 2025-01-09 09:10 | XMS_ITS | Encounter Summary ---
Author Organization [employer] Address [address] [place] [address] 7 [place] [address] Care Team Providers Care Contracting Engineer Name Role Phone Heather Garcia MD Primary Care Provider [phone]- [phone] Encounter Details Date Type Department Care Team ([facility] Contact Info) Description 12/21/2022 Orders Only [facility] MED & PEDS [address] [place] [address] Manisha Lopez LPN Social History Tobacco Use [...] Description 01/15/2025 1:00 PM EDT Office Visit [facility] PEDS [address] [place] [address] Heather Garcia MD [address] [place] [address] 03/22/2025 1:30 PM EST Clinical Support [facility] MED & PEDS [address] [place] [address] Love Alexandra, RN [address] [place] [address] documented as of this encounter Visit Diagnoses Not on filedocumented in this encounter Care Teams Contracting Engineer Relationship Specialty Start Date End Date Heather Garcia MD [address] [place] [address] JARED Stout [address] PCP - General Internal Medicine 03/23/13 documented as of this encounter
--- OUTSIDE RECORDS SUMMARY | 2025-01-09 09:11 | XMS_ITS | Encounter Summary ---
Author Organization [employer] Address [address] [place] [address] [address] [place] [address] Care Team Providers Care Packerhead Machine Operator Name Role Phone Heather Garcia MD Primary Care Provider [phone]- [phone] Encounter Details Date Type Department Care Team ([facility] Contact Info) Description 09/14/2022 Abstract [facility] MED & PEDS [address] [place] [address] Ashley Arthur [place] Social History Tobacco Use Types Packs/Day Years [...] suspected to have Coronavirus/COVID-19? No / Unsure 08/24/2022 3:19 PM EDT documented as of this encounter Plan of Treatment Upcoming Encounters Date Type Department Care Team ([facility] Contact Info) Description 01/15/2025 1:00 PM EDT Office Visit [facility] MED & PEDS [address] [place] [address] Heather Garcia MD [address] [place] [address] 03/22/2025 1:30 PM EST Clinical Support [facility] MED & PEDS [address] [place] [address] Love Alexandra, RN [address] [place] [address] documented as of this encounter Procedures Procedure Name Priority Date/Time Associated Diagnosis Comments COLONOSCOPY Routine 09/08/2022 documented in this encounter Results * Hm Colonoscopy (09/08/2022) Colonoscopy Normal Normal us Historical Provider HEALTH MAINTENANCE Final Result documented in this encounter Visit Diagnoses Not on filedocumented in this encounter Care Teams Packerhead Machine Operator Relationship Specialty Start Date End Date Heather Gacria MD [address] [place] [address] PCP - General Internal Medicine 03/23/13 documented as of this encounter
--- OUTSIDE RECORDS SUMMARY | 2025-01-09 09:11 | XMS_ITS | Encounter Summary ---
Author Organization [employer] Address [address] [place] [address] 7 [place] [address] Care Team Providers Care Customs Examiner Name Role Phone Heather Garcia MD Primary Care Provider [phone] Encounter Details Date Type Department Care Team ([facility] st Contact Info) Description 11/22/2024 Orders Only [facility] MED & PEDS [address] [place], [place] [phone] Heather Garcia MD [address] [place], [place] [phone] Type 2 diabetes mellitus with peripheral angiopathy (CMS/HCC) (Primary Dx) Social History Tobacco Use Types [...] the past 12 months, has t he [employer], gas, oil or water company threatened to [...] [facility] [address] [place] [address] Heather Garcia MD [address] [place] [address] 03/22/2025 1:30 PM EST Clinical Support [facility] MED & PEDS [address] [place] [address] Love Alexandra, PALAK [address] [place] [address] documented as of this encounter Visit Diagnoses Diagnosis Type 2 diabetes mellitus with peripheral angiopathy (HCC)- Primary documented in this encounter Additional Health Concerns Assessment Noted Time PHQ-9 Depression Total Score: 0 03/04/20 9:59 AM EST documented as of this encounter Care Teams Customs Examiner Relationship Specialty Start Date End Date Heather Garcia MD [address] [place] [address] PCP - General Internal Medicine 03/23/13 documented as of this encounter
--- OUTSIDE RECORDS SUMMARY | 2025-01-09 09:11 | XMS_ITS | Encounter Summary ---
Author Organization [employer] Address [address] [place] [address] [place] [address] Care Team Providers Care Vault Person Name Role Phone Heather Garcia MD Primary Care Provider [phone] Reason for Visit * Reason Onset Date Comments glucose monitor 11/21/2024 Encounter Details Date Type Department Care Team ([facility] Contact Info) Description 11/21/2024 Telephone [facility] MED & PEDS [address] [place], [place] [phone] Heather Garcia MD [address] [place] [address] glucose monitor Social History Tobacco Use Types Packs/Day Years [...] the past 12 months, has t he [employer], gas, oil or water company threatened to [...] Telephone Encounter - Micki Hidalgo RN - 11/23/2024 10:19 AM EDT [employer] blood glucose monitoring kit sent to pharmacy. * Telephone Encounter - Fausto Maria - 11/21/2024 10:44 AM EDT Tc from pt requesting a new glucose monitor due to his current one breaking . Contact pt at [phone] documented in this encounter Plan of Treatment Upcoming Encounters Date Type Department Care Team (Late st Contact Info) Description 01/15/2025 1:00 PM EDT Office Visit [facility] MED & PEDS [address] [place] [address] Heather Garcia MD [address] [place] [address] 03/22/2025 1:30 PM EST Clinical Support [facility] MED & PEDS [address] [place], [place] [phone] Love Alexandra, PALAK [address] [place], [place] [phone] documented as of this encounter Visit Diagnoses Diagnosis Back pain, unspecified back location, unspecified back pain laterality, unspecified chronicity documented in this encounter Additional Health Concerns Assessment Noted Time PHQ-9 Depression Total Score: 0 03/04/20 23 9:59 AM EST documented as of this encounter Care Teams Vault Person Relationship Specialty Start Date End Date Heather Garcia MD [address] [place] [address] PCP - General Internal Medicine 03/23/13 documented as of this encounter
--- OUTSIDE RECORDS SUMMARY | 2025-01-09 09:11 | XMS_ITS | Encounter Summary ---
Author Organization [employer] Address [address] [place] [address] Care Team Providers Care Air Duct Mechanic Name Role Phone Heather Garcia MD Primary Care Provider [phone] Reason for Visit * Reason Onset Date Comments Med Refill 07/03/2024 Encounter Details Date Type Department Care Team ([facility] st Contact Info) Description 07/03/2024 Telephone [facility] MEDICINE [address] [place] [address] Heather Garcia MD [address] [place] [address] Med Refill Social History Tobacco Use Types [...] encounter Miscellaneous Notes * Telephone Encounter - Janeth Malik - 07/03/2024 3:50 PM EDT TC from pt requesting medication refill. Medications needing refill : oxyCODONE (Roxicodone) 5 MG immediate release tablet [facility] be sent to: [facility] documented in this encounter Plan of Treatment Upcoming Encounters Date Type Department Care Team ([facility] st Contact Info) Description 01/15/2025 1:00 PM EDT Office Visit [facility] MED & PEDS [address] [place] [address] Heather Garcia MD [address] [place] [address] 03/22/2025 1:30 PM EST Clinical Support [facility] MED & PEDS [address] [place] [address] Love Alexandra RN [address] [place] [address] documented as of this encounter Visit Diagnoses Not on filedocumented in this encounter Additional Health Concerns Assessment Noted Time PHQ-9 Depression Total Score: 0 03/04/20 23 9:59 AM EST documented as of this encounter Care Teams Air Duct Mechanic Relationship Specialty Start Date End Date Heather Garcia MD [address] [place] [address] PCP - General Internal Medicine 03/23/13 documented as of this encounter
--- OUTSIDE RECORDS SUMMARY | 2025-01-09 09:11 | XMS_ITS | Encounter Summary ---
Author Organization [employer] Address [address] [place] [address] [place] [address] Care Team Providers Care Towboat Engineer Name Role Phone Heather Garcia MD Primary Care Provider [phone] Reason for Visit * Reason Onset Date Comments Durable Medical Equipment 07/07/2022 Encounter Details Date Type Department Care Team ([facility] st Contact Info) Description 07/07/2022 Telephone [facility] MED & PEDS [address] [place], [place] [phone] Heather Garcia MD [address] [place] [address] Durable Medical Equipment Social History Tobacco Use Types Packs/Day Years [...] encounter Miscellaneous Notes * Telephone Encounter - Maeve Reynolds LPN - 07/08/2022 9:37 AM EDT Script generated and faxed to [facility] * Telephone Encounter - Maeve Reynolds LPN - 07/07/2022 12:01 PM EDT Please read message below and advise , * Telephone Encounter - Anabel Joselito - 07/07/2022 10:07 AM EDT Tc from patient requesting a new script for diabetic shoes. documented in this encounter Plan of Treatment Upcoming Encounters Date Type Department Care Team (Late st Contact Info) Description 01/15/2025 1:00 PM EDT Office Visit [facility] MED & PEDS [address] [place] [address] Heather Garcia MD [address] [place] [address] 03/22/2025 1:30 PM EST Clinical Support [facility] [address] [place] [address] Love Alexandra, PALAK [address] [place] [address] documented as of this encounter Visit Diagnoses Diagnosis Back pain, unspecified back location, unspecified back pain laterality, unspecified chronicity documented in this encounter Care Teams Towboat Engineer Relationship Specialty Start Date End Date Heather Garcia MD [address] [place] [address] PCP - General Internal Medicine 03/23/13 documented as of this encounter
--- OUTSIDE RECORDS SUMMARY | 2025-01-09 09:11 | XMS_ITS | Encounter Summary ---
Author Organization [employer] Address [address] [facility] 7 [place] [address] Care Team Providers Care Weight Caller Name Role Phone Heather Garcia MD Primary Care Provider [phone] Reason for Visit * Reason Onset Date Comments Med Refill 08/29/2024 Encounter Details Date Type Department Care Team ([facility] st Contact Info) Description 08/29/2024 Telephone [facility] MED[facility] [address] [place] [address] Heather Garcia MD [address] [place] [address] Med Refill Social History Tobacco Use Types [...] the past 12 months, has t he [employer], oil or water company threatened to [...] encounter Miscellaneous Notes * Telephone Encounter - Boubacar Hansen - 08/29/2024 9:09 AM EDT TC from pt requesting medication refill. Medications needing refill: oxyCODONE (Roxicodone) 5 MG immediate release tablet To be sent to: [facility] [place], [place] - [address] [place] [address] documented in this encounter Plan of Treatment Upcoming Encounters Date Type Department Care Team ([facility] st Contact Info) Description 01/15/2025 1:00 PM EDT Office Visit [facility] MED & PEDS [address] [place] [address] Heather Garcia MD [address] [place] [address] 03/22/2025 1:30 PM EST Clinical Support [facility] MED & PEDS [address] [place] [address] Love Alexandra RN [address] [place] [address] documented as of this encounter Visit Diagnoses Not on filedocumented in this encounter Additional Health Concerns Assessment Noted Time PHQ-9 Depression Total Score: 0 03/04/20 23 9:59 AM EST documented as of this encounter Care Teams Weight Caller Relationship Specialty Start Date End Date Heather Garcia MD [address] [place] [address] PCP - General Internal Medicine 03/23/13 documented as of this encounter
--- OUTSIDE RECORDS SUMMARY | 2025-01-09 09:11 | XMS_ITS | Encounter Summary ---
Author Organization [employer] Address [address] [place] [address] 7 [place] [address] Care Team Providers Care Hobber Name Role Phone Heather Garcia MD Primary Care Provider [phone] Encounter Details Date Type Department Care Team ([facility] Contact Info) Description 09/16/2022 Abstract [facility] MED & PEDS [address] [place] [address] Ashley Arthur [place] Social History Tobacco Use [...] Upcoming Encounters Date Type Department Care Team ([facility] Contact Info) Description 01/15/2025 1:00 PM EDT Office Visit [facility] MED & PEDS [address] [place] [address] Heather Garcia MD [address] [place] [address] 03/22/2025 1:30 PM EST Clinical Support [facility] MED & PEDS [address] [place] [address] Love Alexandra, PALAK [address] [place], [place] [phone] documented as of this encounter Visit Diagnoses Not on filedocumented in this encounter Care Teams Hobber Relationship Specialty Start Date End Date Heather Garcia MD [address] [place] [address] PCP - General Internal Medicine 03/23/13 documented as of this encounter
--- OUTSIDE RECORDS SUMMARY | 2025-01-09 09:11 | XMS_ITS | Clinical Summary ---
Author Organization [employer] Address [address] [facility] [address] [place] [address] Care Team Providers Care Clerical And Administrative Workers Name Role Phone Heather Garcia MD Primary Care Provider [phone]- [phone] Allergies Active Allergy Reactions Criticality Noted Date Comments Duloxetine Hcl 04/30/2022 Duloxetine Other 10/15/2015 Other Reaction(s): Suicidal ideation ... Nabumetone 04/30/2022 Pregabalin Unknown 08/25/2021 Other reaction(s): made me goofy Other reaction(s): made me goofy Bupropion 04/30/2022 Medications hydroCHLOROthia zide (HYDRODiuril) 25 MG tablet take 1 Tablet by Oral route once Active carvedilol (Coreg) 12.5 MG tablet take 1 tablet by oral route 2 times every day with food 022 Active fluticasone (Flonase) 50 MCG/ACT nasal spray PLACE ONE SPRAY IN EACH NOSTRIL TWICE DAILY NEEDED Active fluconazole (Diflucan) 150 MG tablet Take 1 tablet (150 mg) by mouth in the morning. Take 1 tablet PO every 72 hours x3 3 tablet 023 Active hydrocortisone 2.5 % creamIndication s:Erythema APPLY TO THE AFFECTED AREA(S) around TO WOUND ONCE DAILY 28.35 g 1 023 Active NIFEdipine CC (Adalat CC) 30 MG 24 hr tabletIndicatio ns:Primary hypertension TAKE ONE TABLET EVERY MORNING 30 tablet 3 024 Active collagenase (Santyl) 250 UNIT/GM ointment Apply small amount to affected area daily 30 g 3 024 Active TechLite Plus Pen [place] 32G X 4 MM miscIndications :Type 2 diabetes mellitus with peripheral angiopathy (HCC) USE DIRECTED 100 each Active hydroCHLOROthia zide (HYDRODiuril) 25 MG tabletIndicatio ns:Essential (primary) hypertension TAKE ONE TABLET EVERY MORNING 30 tablet 11 Active carvedilol (Coreg) 12.5 MG tabletIndicatio ns:Essential (primary) hypertension TAKE ONE TABLET IN THE MORNING AND EVENING WITH FOOD 60 tablet Active fluticasone (Flonase) 50 MCG/ACT nasal sprayIndication s:Nasal congestion INHALE ONE SPRAY IN EACH NOSTRIL TWICE DAILY NEEDED 16 g 025 Active Artificial Tears 0.2-0.2-1 % solution PLACE ONE DROP IN THE AFFECTED EYE(S) THREE TIMES DAILY IN THE MORNING, AT NOON, AND AT BEDTIME NEEDED 15 mL 025 Active Aspirin Adult Low Strength 81 MG EC tablet TAKE ONE TABLET EVERY MORNING 90 tablet 025 Active FREESTYLE LITE test stripIndication s:Type 2 diabetes mellitus without complication, without long-term current use of insulin (HCC) USE ONE TO TEST BLOOD SUGAR TWICE DAILY DIRECTED 50 strip Active oxyCODONE (Roxicodone) 5 MG immediate release tabletIndicatio ns:Back pain, unspecified back location, unspecified back pain laterality, unspecified chronicity Take 1 tablet (5 mg) by mouth every 8 (eight) hours if needed for severe pain. 84 tablet 025 Active Alcohol Swabs (Alcohol Prep) 70 % pads USE TWICE DAILY DIRECTED 100 each 025 Active FT Lubricant Eye Drops 0.4-0.3 % solution PLACE ONE DROP IN THE AFFECTED EYE(S) THREE TIMES DAILY IN THE MORNING, AT NOON, AND AT BEDTIME NEEDED 15 mL 025 Active docusate sodium (Colace) 100 MG capsule TAKE ONE CAPSULE IN THE MORNING AND EVENING 180 capsule Active FeroSul 325 (65 Fe) MG tabletIndicatio ns:Other iron deficiency anemia TAKE ONE TABLET EVERY MORNING 90 tablet 025 Active loratadine (Claritin) 10 MG tablet TAKE ONE TABLET EVERY NIGHT AT BEDTIME 90 tablet 3 025 Active Multiple Vitamin (Multivitamin) tablet TAKE ONE TABLET EVERY MORNING 90 tablet 3 025 Active pantoprazole (ProtoNix) 40 MG EC tablet TAKE ONE TABLET IN THE MORNING AND EVENING 60 tablet 4 025 Active Blood Glucose Monitoring Suppl (SAK Project Lite) w/Device kitIndications: Type 2 diabetes mellitus with peripheral angiopathy (HCC) Use to test blood sugar 1 times daily 1 kit 025 Active oxyCODONE (Roxicodone) 5 MG immediate release tabletIndicatio ns:Back pain, unspecified back location, unspecified back pain laterality, unspecified chronicity Take 1 tablet (5 mg) by mouth every 8 (eight) hours if needed for severe pain. 84 tablet 025 Active atorvastatin (Lipitor) 40 MG tablet TAKE ONE TABLET EVERY NIGHT AT BEDTIME 90 tablet 3 Active Diclofenac Sodium 1 % gelIndications: Back pain, unspecified back location, unspecified back pain laterality, unspecified chronicity APPLY TWO GRAMS EVERY TWELVE HOURS 100 g 1 025 Active NIFEdipine XL (Procardia XL) 30 MG 24 hr tabletIndicatio ns:Primary hypertension TAKE ONE TABLET EVERY MORNING 30 tablet 3 025 Active naloxone (Narcan) 4 mg/0.1 mL nasal sprayIndication s:Cervicalgia FOR SUSPECTED OPIOID OVERDOSE. SPRAY 0.1mL IN ONE NOSTRIL. REPEAT IN ALTERNATE NOSTRIL EVERY 2-3 MINUTES IF NEEDED. SEEK MEDICAL ATTENTION IMMEDIATELY EVEN IF PT RESPONDS. 2 each 2 025 Active glucose 4 g chewable tablet CHEW ONE TABLET IF FASTING SUGAR IS less than 70 mg/dl 10 tablet 2 025 Active Easy Touch Lancets 33G/Twist misc TEST BLOOD SUGAR ONCE DAILY 100 each 5 025 Active oxyCODONE (Roxicodone) 5 MG immediate release tabletIndicatio ns:Back pain, unspecified back location, unspecified back pain laterality, unspecified chronicity Take 1 tablet (5 mg) by mouth every 8 (eight) hours if needed for severe pain. Take 1 tablet (5 mg) by mouth every 8 (eight) hours if needed for severe pain. Do not start before December 21, 2024. 84 tablet 025 Active semaglutide (Ozempic, 0.25 or 0.5 MG/DOSE,) 2 MG/1.5ML solution pen-injectorInd ications:Class 2 obesity,Type 2 diabetes, diet controlled (HCC) INJECT 0.5 MG SUBCUTANEOUSLY ONCE A WEEK 3 mL 025 Active semaglutide (Ozempic) 2 MG/1.5ML solution pen-injectorInd ications:Class 2 obesity,Type 2 diabetes, diet controlled (HCC) Inject 0.25 mg under the skin 1 (one) time per week. 1 each Active valsartan (Diovan) 160 MG tabletIndicatio ns:Essential (primary) hypertension TAKE ONE TABLET EVERY MORNING 90 tablet 5 Active TRUEplus Lancets 33G misc TEST BLOOD SUGAR ONCE DAILY 023 2024 Discontinued valsartan (Diovan) 160 MG tabletIndicatio ns:Essential (primary) hypertension TAKE ONE TABLET EVERY MORNING 90 tablet 5 024 2024 Discontinued TRUEplus Lancets 33G misc TEST BLOOD SUGAR ONCE DAILY 100 each 4 024 2024 Discontinued semaglutide (Ozempic, 0.25 or 0.5 MG/DOSE,) 2 MG/1.5ML solution pen-injectorInd ications:Class 2 obesity,Type 2 diabetes, diet controlled (HCC) INJECT 0.5 MG SUBCUTANEOUSLY ONCE A WEEK 3 mL 025 2024 Discontinued(R eorder (will not trigger notification to Pharmacy)) oxyCODONE (Roxicodone) 5 MG immediate release tabletIndicatio ns:Back pain, unspecified back location, unspecified back pain laterality, unspecified chronicity Take 1 tablet (5 mg) by mouth every 8 (eight) hours if needed for severe pain. Take 1 tablet (5 mg) by mouth every 8 (eight) hours if needed for severe pain. 84 tablet 025 2024 Discontinued(R eorder (will not trigger notification to Pharmacy)) Active Problems Problem Noted Date Diagnosed Date Long-term current use of opiate analgesic 2024 Stenosis of carotid artery 09/27/2023 Class 1 obesity 09/27/2023 Hypertension 09/27/2023 Bilateral carotid artery stenosis 03/10/2023 Acquired hammer toe of right foot 02/17/2023 Polyneuropathy due to type 2 diabetes mellitus 1 04/19/2022 Type 2 diabetes mellitus with peripheral angiopa thy 02/17/2023 Paronychia of great toe 08/24/2022 Assessment & Plan (08/24/2022 4:13 PM EDT): Patient with paronychia on lateral side of both big toes. Will start on keflex 500 mg and Bactroban 2% ointment. Encouraged to soak in epsom salt and massage. Will refer to podiatry. Paronychia of toe 08/24/2022 Overview (09/27/2023): Last Assessment & Plan: Patient with paronychia on lateral side of both big toes. Will start on keflex 500 mg and Bactroban 2% ointment. Encouraged to soak in epsom salt and massage. Will refer to podiatry. Severe obesity (BMI 35.0-39.9) with comorbidity ([facility]) 08/19/2022 Anxiety 08/25/2021 Carotid artery stenosis 08/25/2021 Class 2 obesity 08/25/2021 Depressive disorder 08/25/2021 Low back pain 08/25/2021 Neck pain 08/25/2021 Peripheral arterial occlusive disease 08/25/2021 Shoulder pain 08/25/2021 Hypertensive emergency 08/25/2021 Osteoarthritis of multiple joints 11/10/2019 Peripheral artery disease 07/13/2018 Chronic pain syndrome 11/29/2012 Vitamin D deficiency 11/29/2012 Decreased testosterone level 12/04/2011 Eczema 12/04/2011 Gastroesophageal reflux disease 12/04/2011 Insomnia 12/04/2011 Knee pain 12/04/2011 Mixed hyperlipidemia 12/04/2011 Hypertensive disorder 12/04/2011 Encounters Date Type Department Care Team Description 01/05/2025 Patient Outreach [facility] [address] [place] [address] Heather Garcia MD Pre-visit Planning (SDMN screening completed on 08/03/24) 01/05/2025 Refill [facility] [address] [place] [address] Heather Garcia MD Essential (primary) hypertension 12/25/2024 3:30 PM EDT Office Visit [facility] [address] [place] [address] Heather Garcia MD Primary hypertension (Primary Dx); Encounter for immunization; Type 2 diabetes mellitus with peripheral angiopathy (CMS/HCC); Vitamin D deficiency; Dietary counseling; Exercise counseling; Overweight 12/25/2024 Telephone [facility] [address] [place] [address] Heather Garcia MD Prior Authorization 12/25/2024 Travel 12/19/2024 Telephone [facility] [address] [place] [address] Love Alexandra RN 12/19/2024 Telephone [facility] [address] [place] [address] Heather Garcia MD 12/18/2024 9:30 AM EDT Telemedicine [facility] [address] [place] [address] Love Alexandra RN Back pain, unspecified back location, unspecified back pain laterality, unspecified chronicity 12/18/2024 Orders Only [facility] [address] [place] [address] Heather Garcia MD Class 2 obesity; Type 2 diabetes, diet controlled (CMS/HCC) 12/18/2024 Refill [facility] [address] [place] [address] Love Alexandra RN Back pain, unspecified back location, unspecified back pain laterality, unspecified chronicity 12/18/2024 Travel 12/12/2024 Refill [facility] [address] [place] [address] Amberly Elkins MD 12/07/2024 Telephone [facility] [address] [place] [address] Heather Garcia MD call bcak request 12/07/2024 Refill [facility] [address] [place] [address] Heather Garcia MD Cervicalgia 12/05/2024 Refill [facility] [address] [place] [address] Heather Garcia MD Primary hypertension 12/03/2024 Refill [facility] [address] [place] [address] Heather Garcia MD Back pain, unspecified back location, unspecified back pain laterality, unspecified chronicity; Primary hypertension 12/02/2024 Refill [facility] [address] [place] [address] Heather Garcia MD 11/30/2024 3:30 PM EDT Office Visit [facility] [address] [place] [address] JanaZaida ugartericio 11/28/2024 3:30 PM EDT Office Visit [facility] [address] [place] [address] Jana, Shahzad 11/23/2024 Refill [facility] [address] [place] [address] Heather Garcia MD Back pain, unspecified back location, unspecified back pain laterality, unspecified chronicity 11/22/2024 Orders Only [facility] [address] [place] [address] Heather Garcia MD Type 2 diabetes mellitus with peripheral angiopathy (CMS/HCC) (Primary Dx) 11/21/2024 Telephone [facility] [address] [place] [address] Heather Garcia MD glucose monitor 11/21/2024 Telephone [facility] [address] [place] [address] Heather Garcia MD Med Refill 11/10/2024 1:30 PM EDT Office Visit [facility] [address] [place] [address] Shahzad Bates 11/05/2024 Refill [facility] [address] [place] [address] Heather Garcia MD 11/02/2024 Refill [facility] [address] [place] [address] Winters Zay Townsend MD Other iron deficiency anemia 10/25/2024 Refill [facility] [address] [place] [address] Heather Garcia MD Back pain, unspecified back location, unspecified back pain laterality, unspecified chronicity 10/23/2024 Refill [facility] [address] [place] [address] Heather Garcia MD 10/11/2024 11:30 AM EDT Office Visit [facility] [address] [place] [address] Shahzad Bates from Last 3 Months Immunizations Immunization Administration Dates Next Due Influenza High-dose Quadriva lent Preservative Free 01/08/2023,12/18/2021,12/24/2020,12/19 Influenza injectable quadriv alent IIV4 with preservative 12/31/2017,12/30/2016,12/24/2015,01/07 Influenza, High Dose Seasona l, Preservative Free 12/25/2024,12/30/2023,12/27/2018 Influenza, IIV3, injectable 01/02/2014, 1 Influenza, Split (incl. carli fied surface antigen) 12/28/2012,12/31/2011 Influenza, Unspecified 12/18/2021,2020,12/20/2019,01/02,01/01/2011 Influenza, seasonal, injecta ble, preservative free 12/06/2023,12/04/2022 Pfizer Covid-19 Vaccine 12+ 12/30/2023, 3 Pneumococcal Conjugate PCV 20 03/04/2023 Pneumococcal Polysaccharide PPSV23 08/04/2018, TD (adult), 2 Lf tetanus tox oid, preservative free, adsorbed 01/23/2008 Tdap 01/07/2015,10/25/2014 Zoster, Recombinant 02/22/2019,12/23/2018 Zoster, live 08/04/2018 Family History Medical History Relation Name Comments Cataracts Brother Cataracts Mother Relation Name Status Comments Brother Mother Social History Tobacco Use Types Packs/Day Years Used Date Smoking Tobacco: Former Cigarettes Q uit: 1999 Passive Smoke Exposure: Past Smokeless Tobacco: Never Tobacco Cessation:Counseling Given: Not Answered Alcohol Use Standard Drinks/Week Comments Not Currently [...] is your housing situation today? I have juanitagen schafer 08/03/[address] you [...] Orientation Straight 02/02/2022 10 :20 AM EDT Last Filed Vital Signs Vital Sign Reading Time Taken Comments Blood Pressure 128/60 12/25/2024 4:03 PM EDT Pulse 81 12/25/2024 4:03 PM EDT Temperature 37.1 C (98.7 F) 12/25/2024 4:03 PM EDT Respiratory Rate 20 12/25/2024 4:03 PM EDT Oxygen Saturation 98% 08/10/2024 1:14 PM EDT Inhaled Oxygen Concentration - - Weight 85.3 kg (188 lb) 12/25/2024 4:03 PM EDT Height 176.5 cm (5' 9.5 ) 08/10/2024 1:14 PM EDT Body Mass Index 27.36 08/10/2024 1:14 PM EDT Plan of Treatment Upcoming Encounters Date Type Department Care Team ([facility] st Contact Info) Description 01/15/2025 1:00 PM EDT Office Visit [facility] [address] [place] [address] Heather Garcia MD [address] [place] [address] 03/22/2025 1:30 PM EST Clinical Support [facility] [address] [place] [address] Love Alexandra RN [address] [place] [address] Health Maintenance Due Date Last Done Comments CT Colonography 1953 FIT DNA/Cologuard 1953 FIT 1953 FOBT 1955 Sigmoidoscopy 1953 Alcohol/Substance Use Screening 1965 Hepatitis C Screening 07/13/1971 Dental X-Ray: Bitewings 09/08/2012 09/08/2011 Dental Prophylaxis 05/13/2017 11/09/2016, 0 04/21/2016, 10/15/2015, Additional history exists Dental X-Ray: Full Mouth 04/16/2021 019, 03/25/2016, 09/08/2011 Depression Screening 03/04/2024 03/04/2023, 03/04/20 Diabetes: Foot Exam 03/04/2024 03/04/2023, 03/04/2023, 03/04/2023, Additional history exists Lipid Panel 09/16/2024 09/17/2023, 1007/2020, 12/22/2019 Dental Oral Exam 11/24/2024 05/26/2024, , 02/17/2019, Additional history exists COVID-19 Vaccine ( season) 2024 12/30/2023, 01/08/2023, 01/22/2022, Additional history exists DTaP/Tdap/Td Vaccines (3 - Td or Tdap) 01/07/2025 01/07/2015, 10/25/2014, 01/23/2008 Diabetes: Urine Protein Screening 01/27/2025 01/28/2024, 08/19/2022, 11/05/2021, Additional history exists Diabetes: Hemoglobin A1C 06/24/2025 025, 02/07/2024, 09/28/2023, Additional history exists SDOH Screening 08/03/2025 08/03/2024 Tobacco Screening 12/25/2025 12/25/2024 Eye Exam 10/05/2026 10/05/2024, 07/0 06/2024, 10/05/2024, Additional history exists Colonoscopy 09/09/2027 09/08/2022, 09/04/2022 Colorectal Cancer Screening 09/09/2027 RSV Patients and Patients Aged 60 years or older (1 - 1-dose 75+ series) 2028 Zoster Vaccines Completed 02/22/2019, 12/05, 08/04/2018 Pneumococcal Vaccine: 50+ Years Completed 03/04/2023, 08/04/2018, 07/11/2009 Influenza Vaccine Completed 12/25/2024, , 12/06/2023, Additional history exists HIB Vaccines Aged Out No longer eligi ble based on patient's age to complete this topic HPV Vaccines Aged Out No longer eligi ble based on patient's age to complete this topic Hepatitis A Vaccines Aged Out No long er eligible based on patient's age to complete this topic Hepatitis B Vaccines Aged Out No long er eligible based on patient's age to complete this topic IPV Vaccines Aged Out No longer eligi ble based on patient's age to complete this topic Meningococcal B Vaccine Aged Out No l onger eligible based on patient's age to complete this topic Meningococcal Vaccine Aged Out No carine cristiano eligible based on patient's age to complete this topic RSV under 20 months Aged Out No longe r eligible based on patient's age to complete this topic Rotavirus Vaccines Aged Out No longer eligible based on patient's age to complete this topic Procedures Procedure Name Priority Date/Time Associated Diagnosis Comments POCT GLYCATED HEMOGLOBIN, TOTAL Routine 12/25/2024 4:24 PM EDT Type 2 diabetes mellitus with peripheral angiopathy (CMS/HCC) POCT GLUCOSE Routine 12/25/2024 4:24 PM EDT Type 2 diabetes mellitus with peripheral angiopathy (CMS/HCC) DENTURE FOLLOWUP Routine 11/30/2024 3:30 PM EDT CASE PRESENTATION, DETAILED AND EXTENSIVE TREATMENT PLANNING Routine 11/28/2024 3:30 PM EDT Marcela COMPLETE DENTURE - MANDIBULAR Routine 11/28/2024 3:30 PM EDT Max COMPLETE DENTURE - MAXILLARY Routine 11/28/2024 3:30 PM EDT CASE PRESENTATION, DETAILED AND EXTENSIVE TREATMENT PLANNING Routine 11/10/2024 1:30 PM EDT WAX TRY IN Routine 11/10/2024 1:30 PM EDT NO CHARGE PROCEDURE Routine 10/11/2024 1 1:30 AM EDT PERIODIC ORAL EVALUATION - ESTABLISHED PATIENT Routine 05/26/2024 1:00 PM EST LIPID PANEL, STANDARD Routine 09/17/2023 12:57 PM EDT Mixed hyperlipidemia Controlled type 2 diabetes mellitus without complication, without long-term current use of insulin (CMS/HCC) HM COLONOSCOPY Routine 09/08/2022 ALBUMIN, RANDOM URINE W/CREATININE Routine 11/05/2021 11:16 AM EDT PANORAMIC RADIOGRAPHIC IMAGE Routine 04/15/2018 12:00 AM EST PROPHYLAXIS - ADULT Routine 11/09/2016 1 2:00 AM EDT INTRAORAL - COMPLETE SERIES OF RADIOGRAPHIC IMAGES Routine 09/08/2011 12:00 AM EDT from Last 3 Months or Most Recently Relevant to Health Maintenance Results * POCT Hgb A1c (12/25/2024 4:24 PM EDT) Hemoglobin A1C 5.4 4.0 - 5.7 % Blood 12/25/2024 4:24 PM EDT Heather Garcia MD POINT OF CARE TEST ENTER/ED IT ORDERABLES Final Result * POCT Glucose (12/25/2024 4:24 PM EDT) Glucose Blood, POC 126 60 - 200 mg/dL Blood Capillary blood specimen / Unknown 12/25/2024 4:24 PM EDT us Heather Garcia MD POINT OF CARE TEST ENTER/ED IT ORDERABLES Final Result * (ABNORMAL) Lipid Panel, Standard (09/17/2023 12:57 PM EDT) Triglycerides 166(H) <150 mg/dL [facility] Comment:Desirable Triglyceri de: less than 150 mg/dLBorderline High Triglyceride 150-199 mg/dLHigh Triglyceride: 200-499 mg/dLVery High Triglyceride: greater than or equal to 5OO mg/dL Cholesterol 138 <200 mg/dL [facility] Comment:Desirable Cholestero l: less than 200 mg/dLBorderline High Cholesterol: 200-239 mg/dLHigh Cholesterol: greater than 239 mg/dL LDL Cholesterol Calculated 73 <100 mg/dL [facility] Comment:Desirable LDL: less than 100 mg/dLNear Optimal/Above Optimal LDL: 110- 129 mg/dLBorderline High LDL: 130-159 mg/dLHigh LDL: 160-189 mg/dLVery High LDL: greater than or equal to 190 mg/dL HDL Cholesterol 32(L) >40 mg/dL [facility] Comment:Desirable HDL: great er than 40 mg/dL Note: This HDL assay may give artificially low results in patients with liver disease. Blood Venous blood specimen / Unknown 09/17/2023 12:57 PM EDT 09/17/2023 2:39 PM EDT us Heather Garcia MD LAB BLOOD ORDERABLES Final Result Performing Organization Address City/[facility]/ZIP Co de Phone Number [facility] [address] [place] [address] [phone] * Hm Colonoscopy (09/08/2022) Colonoscopy Normal Normal us Arlene Reeves MD HEALTH MAINTENANCE Final Result * ALBUMIN, RANDOM URINE W/CREATININE (11/05/2021 11:16 AM EDT) Microalbumin Urine 1.4 See Note: mg/dL [facility] Comment: Reference Range: Reference Range Not established Microalb/Creat Ratio 7 <30 mcg/mg creat [facility] Comment: The ADA defines abnormalities in albumin excretion as follows: Albuminuria Category Result (mcg/mg creatinine) Normal to Mildly increased <30 Moderately increased 30-299 Severely increased > OR = 300 The ADA recommends that at least two of three specimens collected within a 3-6 month period be abnormal before considering a patient to be within a diagnostic category. Creatinine, Urine 201 20 - 320 mg/dL [facility] 11/05/2021 11:1 6 AM EDT us Amarilys Perez MD LAB URINE ORDERABLES Final Re sult [facility] [address] from Last 3 Months or Most Recently Relevant to Health Maintenance Insurance [facility] STANDARD [facility] OPT[employer] (HMO D-SNP) [facility] Care Teams Clerical And Administrative Workers Relationship Specialty Start Date End Date Heather Garcia MD [address] [facility] [place] [id number] PCP - General Internal Medicine 03/23/13
--- OUTSIDE RECORDS SUMMARY | 2025-01-09 09:11 | XMS_ITS | Encounter Summary ---
Author Organization [employer] Address [address] [place] [address] [place] [address] Care Team Providers Care Microfilm Duplicating Unit Supervisor Name Role Phone Heather Garcia MD Primary Care Provider [phone] Reason for Visit * Reason Comments Med Refill Encounter Details Date Type Department Care Team ([facility] Contact Info) Description 01/05/2025 Refill [facility] [address] [place], [place] [phone] Heather Garcia MD [address] [place] [address] Essential (primary) hypertension Social History Tobacco Use Types Packs/Day Years [...] the past 12 months, has t he [employer], gas, oil or water [employer] threatened to shut off services in your [...] Description 01/15/2025 1:00 PM EDT Office Visit [facility] [address] [place] [address] Heather Garcia MD [address] [place] [address] 03/22/2025 1:30 PM EST Clinical Support [facility] [address] [place] [address] Love Alexandra, PALAK [address] [place] [address] documented as of this encounter Visit Diagnoses Diagnosis Essential (primary) hypertension Unspecified essential hypertension documented in this encounter Additional Health Concerns Assessment Noted Time PHQ-9 Depression Total Score: 0 03/04/20 23 9:59 AM EST documented as of this encounter Care Teams Microfilm Duplicating Unit Supervisor Relationship Specialty Start Date End Date Heather Garcia MD [address] [place] [address] PCP - General Internal Medicine 03/23/13 documented as of this encounter
--- OUTSIDE RECORDS SUMMARY | 2025-01-09 09:11 | XMS_ITS | Encounter Summary ---
Author Organization [employer] Address [address] [place] [address] Care Team Providers Care Teradata Architect Name Role Phone Heather Garcia MD Primary Care Provider [phone] Reason for Visit * Reason Onset Date Comments Med Refill 06/05/2024 Encounter Details Date Type Department Care Team ([facility] st Contact Info) Description 06/05/2024 Telephone [facility] MED[facility]INE [address] [place] [address] Heather Garcia MD [address] [place] [address] Med Refill Social History Tobacco Use Types [...] * Telephone Encounter - Janeth Malik - 06/05/2024 10:14 AM EST TC from pt requesting medication refill. Medications needing refill : oxyCODONE (Roxicodone) 5 MG immediate release tablet To be sent to: [facility] documented in this encounter Plan of Treatment Upcoming Encounters Date Type Department Care Team ([facility] st Contact Info) Description 01/15/2025 1:00 PM EDT Office Visit [facility] [address] [place] [address] Heather Garcia MD [address] [place] [address] 03/22/2025 1:30 PM EST Clinical Support [facility] [address] [place] [address] Love Alexandra RN [address] [place] [address] documented as of this encounter Visit Diagnoses Not on filedocumented in this encounter Additional Health Concerns Assessment Noted Time PHQ-9 Depression Total Score: 0 03/04/20 23 9:59 AM EST documented as of this encounter Care Teams Teradata Architect Relationship Specialty Start Date End Date Heather Garcia MD [address] [place] [id number] PCP - General Internal Medicine 03/23/13 documented as of this encounter
--- OUTSIDE RECORDS SUMMARY | 2025-01-09 09:11 | XMS_ITS | Encounter Summary ---
Author Organization [employer] Address [address] [place] [address] 7 [place] [address] Care Team Providers Care Transit Worker Name Role Phone Heather Garcia MD Primary Care Provider [phone] Encounter Details Date Type Department Care Team ([facility] st Contact Info) Description 12/18/2024 Orders Only [facility] [address] [place], [place] [phone] Heather Garcia MD [address] [place], [place] [phone] Class 2 obesity; Type 2 diabetes, diet controlled ([facility]) Social History Tobacco Use Types Packs/Day Years [...] the past 12 months, has t he [employer], gas, oil or water [employer] threatened to shut off services in your [...] 01/15/2025 1:00 PM EDT Office Visit [facility] [address] [place] [address] Heather Garcia MD [address] [place] [address] 03/22/2025 1:30 PM EST Clinical Support [facility] [address] [place] [address] Love Alexandra, PALAK [address] [place] [address] documented as of this encounter Visit Diagnoses Diagnosis Class 2 obesity Type 2 diabetes, diet controlled (HCC) documented in this encounter Additional Health Concerns Assessment Noted Time PHQ-9 Depression Total Score: 0 03/04/20 9:59 AM EST documented as of this encounter Care Teams Transit Worker Relationship Specialty Start Date End Date Heather Garcia MD [address] [place] [address] PCP - General Internal Medicine 03/23/13 documented as of this encounter
--- OUTSIDE RECORDS SUMMARY | 2025-01-09 09:11 | XMS_ITS | Encounter Summary ---
Author Organization [employer] Address [address] [facility] [address]t [place] [address] Care Team Providers Care Grinder Gear Name Role Phone Heather Garcia MD Primary Care Provider [phone] Encounter Details Date Type Department Care Team ([facility] Contact Info) Description 09/15/2022 Orders Only [facility] MEDICINE [address] [place], [place] [phone] Adela Morse LPN Social History Tobacco Use Types Packs/Day [...] Department Care Team ([facility] Contact Info) Description 01/15/2025 1:00 PM EDT Office Visit [facility] [address] [place], [place] [phone] Heather Garcia MD [address] [place] [address] 03/22/2025 1:30 PM EST Clinical Support [facility] [address] [place] [address] Love Alexandra, PALAK [address] [place], [place] [phone] documented as of this encounter Visit Diagnoses Not on filedocumented in this encounter Care Teams Grinder Gear Relationship Specialty Start Date End Date Heather Garcia MD [address] [place] [address] PCP - General Internal Medicine 03/23/13 documented as of this encounter
--- OUTSIDE RECORDS SUMMARY | 2025-01-09 09:11 | XMS_ITS | Encounter Summary ---
Author Organization [employer] Address 75 [facility] 7 [place] [address] Care Team Providers Care Security And Privacy Consultant Name Role Phone Heather Garcia MD Primary Care Provider [phone] Reason for Visit * Reason Comments Pre-visit Planning SDOH screening compl eted on 08/03/24 Encounter Details Date Type Department Care Team ([facility] st Contact Info) Description 01/05/2025 Patient Outreach [facility] MEDICINE [address] [place] [address] Heather Garcia MD [address] [place] [address] Pre-visit Planning (SDOH screening completed on 08/03/24) Social History Tobacco Use Types Packs/Day Years [...] AM EDT documented as of this encounter Progress Notes * Basilia Avery - 01/05/2025 3:12 PM EDT ALIREZA Marvin placed successful outbound call to patient for pre-visit planning. Patient name and confirmed. Patient confirms appt date and time, and has transportation arrangements. Biggest concern for appointment at this time is no concerns. Patient advised to bring to appointment a photo id and insurance card. Appropriate screenings completed in anticipation of appointment. documented in this encounter Plan of Treatment Upcoming Encounters Date Type Department Care Team ([facility] st Contact Info) Description 01/15/2025 1:00 PM EDT Office Visit [facility] [address] [place] [address] Heather Garcia MD [address] [place] [address] 03/22/2025 1:30 PM EST Clinical Support [facility]S [address] [place] [address] Love Alexandra, PALAK [address] [place] [address] documented as of this encounter Visit Diagnoses Not on filedocumented in this encounter Additional Health Concerns Assessment Noted Time PHQ-9 Depression Total Score: 0 03/04/20 9:59 AM EST documented as of this encounter Care Teams Security And Privacy Consultant Relationship Specialty Start Date End Date Heather Garcia MD [address] [place] [address] PCP - General Internal Medicine 03/23/13 documented as of this encounter
--- OUTSIDE RECORDS SUMMARY | 2025-01-09 09:11 | XMS_ITS | Encounter Summary ---
Author Organization [employer] Address [address] [place] [address] 7 [place] [address] Care Team Providers Care Decorative Engraver Apprentice Name Role Phone Heather Garcia MD Primary Care Provider [phone] Encounter Details Date Type Department Care Team ([facility] Contact Info) Description 09/16/2022 Abstract [facility]EDS [address] [place], [place] [phone] Heather Garcia MD [address] [place], [place] [phone] Social History Tobacco Use Types Packs/Day Years [...] Upcoming Encounters Date Type Department Care Team ([facility] Contact Info) Description 01/15/2025 1:00 PM EDT Office Visit [facility] [address] [place], [place] [phone] Heather Garcia MD [address] [place] [address] 03/22/2025 1:30 PM EST Clinical Support [facility] [address] [place], [place] [phone] Love Alexandra, PALAK [address] [place], [place] [phone] documented as of this encounter Procedures Procedure Name Priority Date/Time Associated Diagnosis Comments COLONOSCOPY Routine 09/04/2022 documented in this encounter Results * Colonoscopy (09/04/2022) Colonoscopy Normal Normal us Historical Provider HEALTH MAINTENANCE Final Result documented in this encounter Visit Diagnoses Not on filedocumented in this encounter Care Teams Decorative Engraver Apprentice Relationship Specialty Start Date End Date Heather Garcia MD [address] [place] [address] PCP - General Internal Medicine 03/23/13 documented as of this encounter
--- OUTSIDE RECORDS SUMMARY | 2025-01-09 09:11 | XMS_ITS | Encounter Summary ---
Author Organization [employer] Address [address] [place] [address] 7 [place] [address] Care Team Providers Care Ammonium Hydroxide Operator Name Role Phone Heather Garcia MD Primary Care Provider [phone] Encounter Details Date Type Department Care Team (Late Contact Info) Description 10/26/2022 Orders Only [facility] [address] [place], [place] [phone] Heather Garcia MD [address] [place], [place] [phone] Erythema (Primary Dx) Social History Tobacco Use Types [...] suspected to have Coronavirus/COVID-19? No / Unsure 10/12/2022 8:49 AM EDT documented as of this encounter Plan of Treatment Upcoming Encounters Date Type Department Care Team ([facility] Contact Info) Description 01/15/2025 1:00 PM EDT Office Visit [facility] [address] [place], [place] [phone] Heather Garcia MD [address] [place] [address] 03/22/2025 1:30 PM EST Clinical Support [facility] [address] [place], [place] [phone] Love Alexandra RN [address] [place], [place] [phone] documented as of this encounter Visit Diagnoses Diagnosis Erythema- Primary Unspecified erythematous condition documented in this encounter Care Teams Ammonium Hydroxide Operator Relationship Specialty Start Date End Date Heather Garcia MD [address] [place] [address] PCP - General Internal Medicine 03/23/13 documented as of this encounter
[2025-01-09 14:11] LABS: MANUAL DIFF FLAG NO
[2025-01-09 14:44] LABS: Hematocrit 38.4 % (42.0-52.0); Hemoglobin 12.4 g/dl (14.0-18.0); Imm Gran Abs Auto 0.08 X10*3/uL (0.00-0.03); Imm Gran Pct Auto 0.8 % (0.0-0.4); Lymphocytes Absolute Auto 1.9 X10*3/uL (1.2-4.9); Mean Corpuscular HGB Conc 32.3 g/dl (31.0-36.0); Mean Corpuscular Hemoglobin 28.3 pg (27.0-33.0); Mean Corpuscular Volume 87.7 fL (80.0-98.0); NRBC Abs Auto 0.000 X10*3/uL (0.0-0.012); NRBC Pct Auto 0.0 /100WBC (0.0-0.2); Platelet Count 256 X10*3/uL (160-400); Red Blood Count 4.38 X10*6/uL (4.60-5.80); White Blood Count 9.8 X10*3/uL (4.8-10.8)
[2025-01-09 14:51] LABS: Alanine Aminotransferase 11 U/L (0-40); Albumin Level 4.3 g/dL (3.5-5.0); Alkaline Phosphatase 81 U/L (39-117); Anion Gap 11 (12-20); Aspartate Amino Transferase 31 U/L (5-37); Blood Urea Nitrogen 21 mg/dL (9-16); Calcium 9.2 mg/dL (8.4-10.2); Carbon Dioxide 28 mmol/L (22-29); Chloride 107 mmol/L (96-108); Cholesterol 117 mg/dL (<200); Estimated Glomerular Filt Rate 58; HDL Cholesterol 29 mg/dL (>40); Potassium 4.4 mmol/L (3.3-5.1); Sodium 142 mmol/L (135-145); Total Protein 6.8 g/dL (6.5-8.0); Triglycerides 161 mg/dL (<150)
[2025-01-09 15:15] LABS: Folate 3.9 ng/mL (> or = 4.0); Vitamin B12 354 pg/mL (200-900)
== END 2025-01-09 08:34 | disposition home or self-care (01) ==
LOC: HO.CHCLDS 08:33
PROVIDERS: Visit Provider Internal Medicine
DX: E11.51 Type 2 diabetes mellitus with diabetic peripheral angiopathy without gangrene (principal); E55.9 Vitamin D deficiency, unspecified; I77.9 Disorder of arteries and arterioles, unspecified
CPT/HCPCS: 36415; 80053; 80061; 82306; 82607; 82746; 84443; 85025